=== PATIENT | female | born 1985 | race Caucasian/White ===

== ENCOUNTER 2020-11-16 15:58 | Emergency (ER) | payer OTHER, SELFPAY ==
[2020-11-16 16:19] VITALS: BP 120/70; PULSE 95; RESP 20; TEMP 36.3; O2SAT 100
--- NOTE | 2020-11-16 16:34 | ED.SKABFB ---
HPI - Skin/Abscess/Foreign Bdy General Chief complaint: Skin/Abscess/Foreign Body Stated complaint: burned arm and hand at work. Source: patient Mode of arrival: ambulatory Limitations: no limitations History of Present Illness HPI narrative: patient has a reddened area with a small blister on her right wrist and forearm looks like a 1st degree burn that is tender with some erythema warmth and tenderness after she had a cab [employer] on it penetrated above while at work with some hot cooking oil. Otherwise no other injuries no fever chills no shortness of breath. Patient is up-to-date with her tetanus she received 3 years ago. complaint: other ( 1st degree burn over the right wrist and mid forearm) Onset (ago): hour(s) Tetanus up to date: yes Location: RUE Severity: moderate Related Data Allergies Allergy/AdvReac Type Severity Reaction Status Date / Time ampicillin Allergy Anaphylaxis Verified 11/16/20 16:28 cephalexin [From Keflex] Allergy Anaphylaxis Verified 11/16/20 16:28 Review of Systems Review of Systems: All systems reviewed & are unremarkable except as noted in HPI and below PMFSH Past Medical History Medical History Patient denies medical problems Social History Social History Gender identity (if verbalized by the patient): Female Exam Const: General: no acute distress Orientation/consciousness: patient oriented x3 HENMT: Head: normal to inspection Eyes: Conjunctivae: conjunctivae normal Pupils: Equal, round and reactive pupils present EOM: EOMs intact bilaterally Direct Ophthalmoscopy: no photophobia Neck: Neck: normal visual inspection, no lymphadenopathy and no meningeal signs Chest: Chest palpation & inspection: normal inspection of the chest Resp: Effort & Inspection: normal respiratory effort Auscultation: clear to auscultation bilaterally Cardio: Rate: regular rate Rhythm: regular rhythm GI: GI Palp: Yes Soft to palpation Skin: Other: 1st degree burn to her right wrist and forearm Neuro: General: patient oriented x3, moves all extremities and no meningeal signs Course Course Emergency Course: place Silvadene on to affected forearm and advised to take antibiotics that were sent to her pharmacy. Vital Signs Vital signs: Vital Signs Temperature 36.3 C L 11/16/20 16:19 Pulse Rate 95 11/16/20 16:19 Respiratory Rate 20 11/16/20 16:19 Blood Pressure 120/70 11/16/20 16:19 Pulse Oximetry 100 11/16/20 16:19 Temperature 36.3 C L 11/16/20 16:19 Pulse Rate 95 11/16/20 16:19 Respiratory Rate 20 11/16/20 16:19 Blood Pressure 120/70 11/16/20 16:19 Pulse Oximetry 100 11/16/20 16:19 Critical Care Time Critical Care Time Critical Care Time: No Discharge Plan Discharge Clinical Impression: Burn Patient Disposition: Home, Self-Care Condition: Stable Instructions: Antibiotic Form, Superficial Burn (ED) Additional Instructions: use Silvadene on to affected area twice daily, for approximately 5 days and take antibiotics as prescribed can use Tylenol or Motrin for pain and follow-up with primary care physician if symptoms persist or worsen. Prescriptions: New sulfamethoxazole-trimethoprim [Bactrim DS] 800-160 mg tablet 1 tablet PO Q12H Qty: 20 RF: 0 Follow-up/Referrals: Saul Rahman M.D. [Primary Care Provider] - Stand Alone Forms: Work/School Release IP Time of Disposition: 16:41
[2020-11-16] MEDS: SILVER SULFADIAZINE 1% CR 50 GM JAR (*BKC) 1 APPLIC (16:41)
[2020-11-16 16:42] VITALS: BP 118/72; PULSE 90; RESP 20; TEMP 36.7; O2SAT 100
== END 2020-11-16 16:55 | disposition home or self-care (01) ==
PROVIDERS: Emergency Provider Emergency Medicine; PCP Family Medicine
DX: T22.111A Burn of first degree of right forearm, initial encounter (principal); T23.171A Burn of first degree of right wrist, initial encounter; X10.2XXA Contact with fats and cooking oils, initial encounter
CPT/HCPCS: 16000; 99283; A9270

== ENCOUNTER 2021-01-28 17:25 | Emergency (ER) | payer OTHER, SELFPAY ==
--- NOTE | ~2021-01-28 | XR_ITS ---
XR cervical spine 4-5V 01/28/2021 18:10 Indication: Neck pain Procedure: 3 views cervical spine Comparison: No prior studies for comparison. Findings: Reversal of cervical lordosis. No fracture, subluxation or dislocation. No prevertebral sof t tissue swelling. Lung apices are unremarkable. Odontoid process within normal limits. Mild multilev el uncinate degenerative changes. Impression: 1: No acute abnormality of the cervical spine. Reviewed, dictated and finalized at location A. Impression: 1: No acute abnormality of the cervical spine.
--- NOTE | ~2021-01-28 | XR_ITS ---
[XR ribs LT 2V ] INDICATION: Left rib pain TECHNIQUE: Frontal projection of the upper left ribs, frontal projection of the lower left ribs, obli que projection of all the left ribs, frontal inspiratory chest x-ray for interpretation. FINDINGS: There are no displaced rib fractures identified. There are no soft tissue abnormality see n. The lungs are clear. IMPRESSION: 1:No displaced rib fractures. Reviewed, dictated and finalized at location A.
[2021-01-28 17:30] VITALS: BP 133/91; PULSE 92; RESP 17; TEMP 36.8; O2SAT 100
[2021-01-28] MEDS: KETOROLAC (*BKC) 60 MG/2 ML VIAL IM (18:13)
--- NOTE | 2021-01-28 18:15 | ED.FALL ---
HPI - Fall General Chief Complaint: Fall Stated Complaint: fell off ladder Source: patient Mode of arrival: ambulatory Limitations: no limitations History of Present Illness HPI Narrative: this is a 35-year-old female that while at work fell off a ladder and injured her neck on the left side and left-sided ribs there is some point tenderness in the left mid rib area and the neck tender although has good range of motion with no numbness or tingling in her in her left shoulder or arm or fingers, patient did not lose consciousness no headache no blurry vision no nausea or vomiting. complaint: fall Onset (ago): hour(s) Fall from: other ( off a ladder) Fall witnessed: yes, by bystander Place fall occurred: work Loss of consciousness: none Prolonged down time: no Symptoms prior to fall: none Related Data Home Medications Medication Instructions Recorded Confirmed baclofen 10 mg PO BID 01/28/21 01/28/21 [id number] 1 cap PO Q4H PRN 01/28/21 01/28/21 [Fioricet] propranolol 80 mg PO DAILY 01/28/21 01/28/21 Allergies Allergy/AdvReac Type Severity Reaction Status Date / Time ampicillin Allergy Anaphylaxis Verified 11/16/20 16:28 cephalexin [From Keflex] Allergy Anaphylaxis Verified 11/16/20 16:28 Review of Systems Review of Systems: All systems reviewed & are unremarkable except as noted in HPI and below PMFSH Past Medical History Medical History Patient denies medical problems Social History Social History Gender identity (if verbalized by the patient): Female Exam Const: General: no acute distress and alert Orientation/consciousness: patient oriented x3 Limitations: altered mental status Eyes: Conjunctivae: conjunctivae normal Pupils: Equal, round and reactive pupils present EOM: EOMs intact bilaterally Direct Ophthalmoscopy: no photophobia Neck: Neck: normal visual inspection, no lymphadenopathy and no meningeal signs Chest: Other: Has tender left medial ribs with palpation and with deep inspiration Resp: Effort & Inspection: normal respiratory effort Auscultation: clear to auscultation bilaterally Cardio: Rate: regular rate Rhythm: regular rhythm GI: Auscultation: normal bowel sounds : General: Yes no CVA tenderness Urinary Catheter: Urinary Catheter: patent and draining Back/Spine/Pelvis: Back: no CVA tenderness Skin: General skin exam: normal color Rashes: no rashes Neuro: General: patient oriented x3, moves all extremities, no meningeal signs and no focal motor deficits Extrem: General: normal to inspection and no pedal edema Psych: Appearance: grossly normal Mental Status: mental status grossly normal Affect: normal affect Course Course Emergency Course: reassessment of patient pain level has improved advised her to take her medication as prescribed reviewed her x-ray findings. Vital Signs Vital signs: Vital Signs Temperature 36.8 C 01/28/21 17:30 Pulse Rate 92 01/28/21 17:30 Respiratory Rate 17 01/28/21 17:30 Blood Pressure 133/91 H 01/28/21 17:30 Pulse Oximetry 100 01/28/21 17:30 Temperature 36.8 C 01/28/21 17:30 Pulse Rate 92 01/28/21 17:30 Respiratory Rate 17 01/28/21 17:30 Blood Pressure 133/91 H 01/28/21 17:30 Pulse Oximetry 100 01/28/21 17:30 Critical Care Time Critical Care Time Critical Care Time: No Discharge Plan Discharge Clinical Impression: Cervical strain Qualifiers: Encounter type: initial encounter Qualified Code(s): S16.1XXA - Strain of muscle, fascia and tendon at neck level, initial encounter Patient Disposition: Home, Self-Care Condition: Stable Instructions: Muscle Strain (ED) Additional Instructions: take medicine as prescribed and follow-up with primary care physician if symptoms persist or worsen. Prescriptions: New cyclobenzaprine 5 mg tablet 5
[2021-01-28 18:29] VITALS: RESP 16
== END 2021-01-28 18:30 | disposition home or self-care (01) ==
PROVIDERS: Emergency Provider Emergency Medicine; PCP Family Medicine
DX: S16.1XXA Strain of muscle, fascia and tendon at neck level, initial encounter (principal); W11.XXXA Fall on and from ladder, initial encounter
CPT/HCPCS: 71100; 72050; 96372; 99283; 99284; J1885

== ENCOUNTER 2024-10-23 18:45 | Observation (INO) | payer SELFPAY ==
[2024-10-23] VITALS (30 sets, daily range): BP systolic 107–146; BP diastolic 69–129; PULSE 100–144; RESP 18–38; TEMP 36.6–38.2; O2SAT 86–100; BMI 24.8
--- NOTE | ~2024-10-23 | CT_ITS ---
EXAMINATION: CTA chest PE protocol DATE: 10/25/2024 11:46 INDICATION: Shortness of breath. Tachycardia. TECHNIQUE: Computed tomography angiography (CTA) of the chest was performed with 100 mL Omnipaque-350 intravenous contrast timed to evaluate the pulmonary arteries. Coronal maximum intensity projection 3D-reconstructions were created by the technologist. Automated exposure control and iterative reconst ruction technique were employed. The dose-length product was 263.07 mGy-cm. COMPARISON: None. FINDINGS: The lungs demonstrate mild atelectasis. Calcified right lung nodules and calcified right hi lar and mediastinal lymph nodes are consistent with old granulomatous disease. There are a few nodule s in right upper lobe measuring up to 5 mm, likely benign. No pleural effusion. The heart size is nor mal. No pericardial effusion. There is no pulmonary embolus. Calcifications in the spleen are consist ent with old granulomatous disease. There is mild thoracic spondylosis and severe cervical spondylosi s. IMPRESSION: 1. No pulmonary embolus. Reviewed, dictated and finalized at location A. RFORM MACHINE OPERATOR IMPRESSION: 1. No pulmonary embolus.
--- NOTE | ~2024-10-23 | XR_ITS ---
EXAMINATION: XR chest 2V DATE: 10/23/2024 19:42 INDICATION: Shortness of breath. Cough. TECHNIQUE: Frontal and lateral views of the chest were obtained. COMPARISON: None. FINDINGS: There is no pneumonia, pleural effusion, or pneumothorax. The heart size is normal. IMPRESSION: 1. No acute cardiopulmonary disease. Reviewed, dictated and finalized at location A. TBAND SEPARATOR
--- OUTSIDE RECORDS SUMMARY | 2024-10-23 18:47 | XMS_ITS | Clinical Summary ---
Author Organization [facility] Address [address] [place] [address] Care Team Providers Care Non Licensed Operator Name Role Phone Álvaro Rahman MD Primary Care Provider Silva wilkinson Source Comments [facility],non-owned Affiliates and Associated Physician Practices is amultiple site organization consisting of ambulatory clinics and hospital sitesin [place], [place], [place] and [place]. This disclosure is being madepursuant to the Care Everywhere program and may not contain all information available regarding this patient. Last updated 18.[facility] Allergies Active Allergy Reactions Criticality Noted Date Comments Ampicillin Anaphylaxis High 05/22/2019 Cephalexin Anaphylaxis High 05/22/2019 Medications * Be aware that medications may not be up to date on this document. Alwaysverify current medications with the patient. Medication Sig Dispensed Refills Start Date End Date Status acetaminophen (TYLENOL) 500 MG tablet Take 500 mg by mouth every 6 hours as needed for Fever or Pain Maximum allowable Acetaminophen amount = 4 Grams (4000 mg) / 24 hours. Active diphenoxylate-atro pine (LOMOTIL) 2.5-0.025 MG tablet Take 1 tablet by mouth 3 times daily as needed for Diarrhea 6 tablet 04/25/2020 Active Social History Tobacco Use Types Packs/Day Years Used Date Smoking Tobacco: Every Day Cigarettes Smokeless Tobacco: Never Alcohol Use Standard Drinks/Week Comments Never 0 (1 standard drink = 0.6 oz pur e alcohol) AUDIT-C Answer Date Recorded Frequency of Alcohol Consumption Never 05/22/2019 Average Number of Drinks Not on file 019 Frequency of Binge Drinking Not on file 05/03 Sex and Gender Information Value Date Recorded Sex Assigned at Not on file Gender Identity Not on file Sexual Orientation Not on file Last Filed Vital Signs Vital Sign Reading Time Taken Comments Blood Pressure 123/80 04/25/2020 10:02 PM CDT Pulse 80 04/25/2020 7:00 PM CDT Temperature 37.2 C (99 F) 04/25/2020 7:00 PM CDT Respiratory Rate 20 04/25/2020 7:00 PM CDT Oxygen Saturation 97% 04/25/2020 10: 02 PM CDT Inhaled Oxygen Concentration - - Weight 68.4 kg (150 lb 12.7 oz) 04/25/2020 7:00 PM CDT Height 152.4 cm (5') 04/25/2020 7:00 PM CDT Body Mass Index 29.45 04/25/2020 7:00 PM CDT Plan of Treatment Health Maintenance Due Date Last Done Comments LIPID TESTING 1983 MAMMOGRAM 1983 PAP SMEAR 1983 HIV SCREENING 1998 HEPATITIS C SCREENING 04/18/2001 DTAP/TDAP/TD VACCINES (1 - Tdap) 2002 HEPATITIS B VACCINE (1 of 3 - 19+ 3-dose series) 2002 PNEUMOCOCCAL VACCINE (1 of 2 - PCV) 2002 COVID-19 VACCINE (1 - 2023-2 5 season) 2024 INFLUENZA VACCINE (#1) 2024 DEPRESSION SCREENING 09/01/2024 ZOSTER VACCINE (1 of 2) 2033 HIB VACCINE Aged Out No longer eligi ble based on patient's age to complete this topic HPV VACCINE Aged Out No longer eligi ble based on patient's age to complete this topic MENINGOCOCCAL (Group B) VACCINE Aged Out No longer eligible based on patient's age to complete this topic MENINGOCOCCAL VACCINE Aged Out No clarisse zaid eligible based on patient's age to complete this topic Care Teams Non Licensed Operator Relationship Specialty Start Date End Date Álvaro Rahman MD PCP - General Internal Medicine 05/22/19
--- OUTSIDE RECORDS SUMMARY | 2024-10-23 18:47 | XMS_ITS | Referral Summary ---
Author Organization [facility] Address [address] [place] [address] Care Team Providers Care Clerical Stock Inspector Name Role Phone Álvaro Rahman MD Primary Care Provider Silva wilkinson Source Comments [facility],non-owned Affiliates and Associated Physician Practices is amultiple site organization consisting of ambulatory clinics and hospital sitesin [place], [place], [place] and [place]. This disclosure is being madepursuant to the Care Everywhere program and may not contain all information available regarding this patient. Last updated 18.[facility] Allergies Active Allergy Reactions Criticality Noted Date [...] 04/25/2020 7:00 PM CDT Plan of Treatment Not on file Care Teams Clerical Stock Inspector Relationship Specialty Start Date End Date Álvaro Rahman MD PCP - General Internal Medicine 05/22/19
--- OUTSIDE RECORDS SUMMARY | 2024-10-23 18:47 | XMS_ITS | Patient Health Summary ---
Author Organization [facility] Address [address] [place] [address] Care Team Providers Care Brand Advocate Name Role Phone Álvaro Rahman MD Primary Care Provider Silva wilkinson Note from [facility],non-owned Affiliates and Associated Physician Practices is amultiple site organization consisting of ambulatory clinics and hospital sitesin [place], [place], [place] and [place]. This disclosure is being madepursuant to the Care Everywhere program and may not contain all information available regarding this patient. Last updated 18[facility] [employer] Allergies * Ampicillin(Anaphylaxis) -High Criticality * Cephalexin(Anaphylaxis) -High Criticality Medications * Be aware that medications may not be up to date on this document. Alwaysverify current medications with the patient. * acetaminophen (TYLENOL) 500 MG tablet Take 500 mg by mouth every 6 hours as needed for Fever or Pain Maximum allowable Acetaminophen amount = 4 Grams (4000 mg) / 24 hours. * diphenoxylate-atropine (LOMOTIL) 2.5-0.025 MG tablet(Started 04/25/2020) Take 1 tablet by mouth 3 times daily as needed for Diarrhea Social History Tobacco Use Types Packs/Day Years [...] Mass Index 29.45 04/25/2020 7:00 PM CDT Procedures * CBC W AUTO DIFFERENTIAL(Performed 04/25/2020) * MAGNESIUM BLOOD(Performed 04/25/2020) * COMPREHENSIVE METABOLIC PANEL(Performed 04/25/2020) * COMPREHENSIVE METABOLIC PANEL(Performed 03/05/2020) * CT ABDOMEN PELVIS WO CONTRAST(Performed 03/05/2020) Performed for Flank pain * CBC W AUTO DIFFERENTIAL(Performed 03/05/2020) * URINALYSIS REFLEX MICROSCOPIC REFLEX CULTURE(Performed 03/05/2020) * HCG URINE QUALITATIVE - POCT (IP) BEAKER - ILL(Performed 08/31/2019) * URINALYSIS REFLEX MICROSCOPIC REFLEX CULTURE(Performed 08/31/2019) * COMPREHENSIVE METABOLIC PANEL(Performed 08/31/2019) * CBC W AUTO DIFFERENTIAL(Performed 08/31/2019) * CT ABDOMEN PELVIS WO CONTRAST(Performed 08/31/2019) Performed for Flank pain * ED DENTAL BLOCK(Performed 07/28/2019) Performed for Pain due to dental caries * XR CHEST 2VW(Performed 05/23/2019) Performed for Fever, unspecified fever cause * HCG URINE QUALITATIVE - POCT (IP) BEAKER - ILL(Performed 05/22/2019) * URINALYSIS REFLEX MICROSCOPIC REFLEX CULTURE(Performed 05/22/2019) * LIPASE BLOOD(Performed 05/22/2019) * COMPREHENSIVE METABOLIC PANEL(Performed 05/22/2019) * CBC W AUTO DIFFERENTIAL(Performed 05/22/2019) * CULTURE STREP GROUP A(Performed 05/22/2019) * INFLUENZA A+B ANTIGEN RAPID(Performed 05/22/2019) * STREP A SCREEN DIRECT W RFLX STREP A CULTURE(Performed 05/22/2019) Results * (ABNORMAL) CBC W AUTO DIFFERENTIAL (04/25/2020 8:53 PM CDT) Only the most recent of4 resultswithin the time period is included. WBC 9.7 4.0 - 10.0 x10E9/L 04/25/2020 9:04 PM CDT [facility] RBC 4.78 3.93 - 5.22 x10E12/L 04/25/2020 9:04 PM CDT [facility] Hemoglobin 13.5 11.2 - 15.7 gm/dL 04/25/2020 9:04 PM CDT [facility] Hematocrit 40.3 34.1 - 44.9 % 04/25/2020 9:04 PM CDT [facility] MCV 84.3 78.0 - 100.0 fl 04/25/2020 9:04 PM CDT [facility] MCH 28.2 25.6 - 34.0 pg 04/25/2020 9:04 PM CDT [facility] MCHC 33.5 32.3 - 36.5 gm/dL 04/25/2020 9:04 PM CDT [facility] RDW 13.1 11.6 - 14.4 % 04/25/2020 9:04 PM CDT [facility] MPV 9.4 9.4 - 12.4 fl 04/25/2020 9:04 PM CDT [facility] Platelet Count 305 163 - 369 x10E9/L 04/25/2020 9:04 PM CDT [facility] Neutrophils % 61.2 40.0 - 75.0 % 04/25/2020 9:04 PM CDT [facility] Lymphocytes % 25.1 19.3 - 53.1 % 04/25/2020 9:04 PM CDT [facility] Monocytes % 5.9 4.7 - 12.5 % 04/25/2020 9:04 PM CDT [facility] Eosinophils % 7.0 0.7 - 7.0 % 04/25/2020 9:04 PM CDT [facility] Basophils % 0.4 0.1 - 1.2 % 04/25/2020 9:04 PM CDT [facility] Immature Granulocytes 0.4 0 - 0.5 % 04/25/2020 9:04 PM CDT [facility] Neutrophil Absolute 5.97 1.56 - 6.13 x10E9/L 04/25/2020 9:04 PM CDT [facility] Lymphocytes Absolute 2.44 1.18 - 3.74 x10E9/L 04/25/2020 9:04 PM CDT [facility] Monocytes Absolute 0.57 0.24 - 0.86 x10E9/L 04/25/2020 9:04 PM CDT [facility] Eosinophils Absolute 0.68(H) 0.04 - 0.54 x10E9/L 04/25/2020 9:04 PM CDT [facility] Basophils Absolute 0.04 0.01 - 0.08 x10E9/L 04/25/2020 9:04 PM CDT [facility] Immature Granulocytes Absolute 0.04(H) 0 - 0.03 x10E9/L 04/25/2020 9:04 PM CDT [facility] nRBC Auto 0 <=0 /100 WBC 04/25/2020 9:04 PM CDT [facility] nRBC Absolute 0.00 <=0 x10E9/L 04/25/2020 9:04 PM CDT [facility] Blood BLOOD SPECIMEN / Unknown Venipuncture / Unknown 04/25/2020 8:53 PM CDT 04/25/2020 9:01 PM CDT Eloisa Grande SERVICE PROVIDER-CEMENT CUTTER [facility] - HEMATOL OGY ORDERABLES Performing Organization Address City/State/[facility] Co de Phone Number [facility] [address] * (ABNORMAL) COMPREHENSIVE METABOLIC PANEL (04/25/2020 8:52 PM CDT) Only the most recent of4 resultswithin the time period is included. Glucose 96 70 - 125 mg/dL 04/25/2020 9:24 PM CDT [facility] Sodium 139 136 - 145 mmol/L 04/25/2020 9:24 PM CDT [facility] Potassium 3.9 3.4 - 4.5 mmol/L 04/25/2020 9:24 PM CDT [facility] Chloride 109(H) 98 - 107 mmol/L 04/25/2020 9:24 PM CDT [facility] CO2 21(L) 22 - 29 mmol/L 04/25/2020 9:24 PM CDT [facility] Calcium 8.88 8.4 - 10.2 mg/dL 04/25/2020 9:24 PM CDT [facility] Anion Gap 13 10 - 20 mmol/L 04/25/2020 9:24 PM CDT [facility] BUN 13.1 9.8 - 20.1 mg/dL 04/25/2020 9:24 PM CDT [facility] Creatinine 0.71 0.57 - 1.11 mg/dL 04/25/2020 9:24 PM CDT [facility] eGFR by MDRD >60 >60 mL/min/1.7 3m2 04/25/2020 9:24 PM CDT [facility] eGFR by MDRD >60 >60 mL/min/1.7 3m2 04/25/2020 9:24 PM CDT [facility] Alkaline Phosphatase 57 40 - 150 U/L 04/25/2020 9:24 PM CDT [facility] ALT 29 5 - 55 U/L 04/25/2020 9:24 PM CDT [facility] AST 24 5 - 34 U/L 04/25/2020 9:24 PM CDT [facility] Protein Total 6.8 6.4 - 8.3 gm/dL 04/25/2020 9:24 PM CDT [facility] Albumin 3.6 3.5 - 5.0 gm/dL 04/25/2020 9:24 PM CDT [facility] Globulin Total 3.2 2.6 - 4.0 gm/dL 04/25/2020 9:24 PM CDT [facility] Albumin/Globulin Ratio 1.1 0.9 - 1.6 04/25/2020 9:24 PM CDT [facility] Bilirubin Total 0.1(L) 0.2 - 1.2 mg/dL 04/25/2020 9:24 PM CDT [facility] Blood BLOOD SPECIMEN / Unknown Venipuncture / Unknown 04/25/2020 8:52 PM CDT 04/25/2020 9:01 PM CDT Eloisa Grande APRN-CEMENT CUTTER LAB - SPORTS ACTIVITIES FOUL JUDGE RY ORDERABLES [facility] [address] [place] [address], [facility] * MAGNESIUM BLOOD (04/25/2020 8:52 PM CDT) Magnesium 2.1 1.6 - 2.6 mg/dL 04/25/2020 9:24 PM CDT [facility] Blood BLOOD SPECIMEN / Unknown Venipuncture / Unknown 04/25/2020 8:52 PM CDT 04/25/2020 9:01 PM CDT Eloisa Grande SERVICE PROVIDER-CEMENT CUTTER LAB - SPORTS ACTIVITIES FOUL JUDGE RY ORDERABLES [facility] [address] [place], [place] [address] * CT ABDOMEN PELVIS WO CONTRAST - acute abdomen (03/05/2020 6:06 PM CDT) Only the most recent of2 resultswithin the time period is included. Anatomical Region Laterality Modality Abdomen, Pelvis Computed Tomogra phy 03/05/2020 6:43 PM CDT Narrative 03/05/2020 6:53 PM CDT IMAGING STUDIES: CT ABDOMEN PELVIS WO CONTRAST DATE: 03/05/2020 6:06 PM CLINICAL HISTORY: Unspecified abdominal pain. Left-sided flank pain. Left lower quadrant pain. CONCLUSION: 1.Routine CT of the abdomen and pelvis without contrast. Comparison August 31, 2019. Radiation dose reduction technique was utilized. 2.There are no acute findings. Bilateral punctate nonobstructing renal calculi. No hydronephrosis. No urinary bladder calculi.. Uterus and adnexal regions are age appropriate. Normal-sized appendix without inflammation. Stable probable small appendicoliths. Subtle stable cholelithiasis without inflammation. 3.Mild fatty infiltration of the liver without mass. All other visualized noncontrast visceral structures are within normal limits. No free fluid or free air. 4.No bowel obstruction. Atherosclerotic normal-sized aorta. No pathologic lymphadenopathy. Possible sigmoid diverticuli without diverticulitis. 5.Lung bases with minimal scar. No infiltrate.. Minor degenerative change in lumbar spine. Mild to moderate sclerosis of both sacroiliac joints without erosion. May be due to sacroiliitis. Benign bone islands in the pelvis.. Procedure Note Mino Bradshaw MD - 03/05/2020 IMAGING STUDIES: CT ABDOMEN PELVIS WO CONTRAST DATE: 03/05/2020 6:06 PM CLINICAL HISTORY: Unspecified abdominal pain. Left-sided flank pain. Left lower quadrant pain. CONCLUSION: 1.Routine CT of the abdomen and pelvis without contrast. Comparison August 31, 2019. Radiation dose reduction technique was utilized. 2.There are no acute findings. Bilateral punctate nonobstructing renal calculi. No hydronephrosis. No urinary bladder calculi.. Uterus and adnexal regions are age appropriate. Normal-sized appendix without inflammation. Stable probable small appendicoliths. Subtle stable cholelithiasis without inflammation. 3.Mild fatty infiltration of the liver without mass. All other visualized noncontrast visceral structures are within normal limits. No free fluid or free air. 4.No bowel obstruction. Atherosclerotic normal-sized aorta. No pathologic lymphadenopathy. Possible sigmoid diverticuli without diverticulitis. 5.Lung bases with minimal scar. No infiltrate.. Minor degenerative change in lumbar spine. Mild to moderate sclerosis of both sacroiliac joints without erosion. May be due to sacroiliitis. Benign bone islands in the pelvis.. Ludwin Pratt MD CT ORDERABLES * (ABNORMAL) URINALYSIS REFLEX MICROSCOPIC REFLEX CULTURE (03/05/2020 4:49 PM CDT) Only the most recent of3 resultswithin the time period is included. Color UA Yellow Straw, Yellow 03/05/2020 6:00 PM CDT [facility] Clarity UA Slt Cloudy(A) Clear 03/05/2020 6:00 PM CDT [facility] Glucose UA Negative Negative 03/05/2020 6:00 PM CDT [facility] Bilirubin UA Negative Negative 03/05/2020 6:00 PM CDT [facility] Ketone UA Negative Negative 03/05/2020 6:00 PM CDT [facility] Specific [place] UA 1.018 1.005 - 1.030 03/05/2020 6:00 PM CDT [facility] Blood UA Negative Negative 03/05/2020 6:00 PM CDT [facility] pH UA 6.0 5.0 - 8.0 pH 03/05/2020 6:00 PM CDT [facility] Protein UA Negative Negative 03/05/2020 6:00 PM CDT [facility] Urobilinogen UA Negative Negative mg/dL 03/05/2020 6:00 PM CDT [facility] Nitrite UA Negative Negative 03/05/2020 6:00 PM CDT [facility] Leukocyte UA Negative Negative 03/05/2020 6:00 PM CDT [facility] Urine Microscopy Urine microscopy not indicated 03/05/2020 6:00 PM CDT [facility] Reflex Status Culture not indicated 03/05/2020 6:00 PM CDT [facility] Urine URINE SPECIMEN OBTAINED BY CLEAN CATCH PROCEDURE / Unknown Collection / Unknown 03/05/2020 4:49 PM CDT 03/05/2020 5:47 PM CDT Narrative [facility] - 03/05/2020 6:00 PM CDT Ludwin Pratt MD LAB - URINALYSIS ORD ERABLES [facility] [address] * HCG URINE QUALITATIVE - POCT (IP) BEAKER - [facility] (08/31/2019 1:28 AM ELECTRICAL SOLDERER) Only the most recent of2 resultswithin the time period is included. HCG Qual Urine Negative Negative [facility] Lot # [id number] [facility] Expiration Date 02/28/21 [facility] QC Verified Yes Yes [facility] Urine URINE / Unknown 08/31/2019 1 :28 AM ELECTRICAL SOLDERER Omar Mcdaniel MD LAB - POINT OF CAR E ORDERABLES Performing Organization Address City/[facility] Co de Phone Number [facility] [address] * Dental Block (07/28/2019 6:34 PM ELECTRICAL SOLDERER) Narrative Álvaro Quintanilla MD - 07/28/2019 6:34 PM ELECTRICAL SOLDERER Brianda Kemp APRN-CNP 07/28/2019 7:00 PM Dental Block Date/Time: 07/28/2019 6:59 PM Performed by: Brianda Kemp APRN-CNP Authorized by: Brianda Kemp APRN-CNP Consent: Consent obtained: Verbal and emergent situation Consent given by: Patient Risks discussed: Hematoma, allergic reaction, infection, intravascular injection, pain, nerve damage, swelling and unsuccessful block Alternatives discussed: No treatment, alternative treatment and delayed treatment Indications: Indications: dental pain Location: Block type: Inferior alveolar Laterality: Right Procedure details (see MAR for exact dosages): Needle gauge: 27 G Anesthetic injected: Bupivacaine 0.5% w/o epi Injection procedure: Anatomic landmarks identified, anatomic landmarks palpated, introduced needle, negative aspiration for blood and incremental injection Post-procedure details: Outcome: Anesthesia achieved Patient tolerance of procedure: Tolerated well, no immediate complications Brianda Kemp APRN-CEMENT CUTTER PROCEDURE/MINOR SURGICAL ORDERABLES * XR CHEST 2VW (05/23/2019 12:48 AM CDT) Anatomical Region Laterality Modality Chest Radiographic Manisha ging 05/24/2019 8:34 AM CDT Impressions 05/24/2019 8:35 AM CDT 1.No evidence of acute cardiopulmonary disease. 2.Normal heart size and pulmonary vascularity. No consolidation or pleural effusion. No pneumothorax. Slight thoracolumbar curve. 3.Concur with preliminary report. Narrative 05/24/2019 8:35 AM CDT EXAMINATION: XR CHEST 2VW EXAM DATE/TIME: 05/23/2019 12:49 AM CLINICAL HISTORY: Fever. COMPARISON: No comparison. Procedure Note Eunice Kemp MD - 05/24/2019 EXAMINATION: XR CHEST 2VW EXAM DATE/TIME: 05/23/2019 12:49 AM CLINICAL HISTORY: Fever. COMPARISON: No comparison. IMPRESSION 1.No evidence of acute cardiopulmonary disease. 2.Normal heart size and pulmonary vascularity. No consolidation or pleural effusion. No pneumothorax. Slight thoracolumbar curve. 3.Concur with preliminary report. [facility] R[facility] * LIPASE BLOOD (05/22/2019 11:31 PM CDT) Lipase 25 8 - 78 U/L 05/23/2019 12:09 AM CDT [facility] Blood BLOOD SPECIMEN / Unknown Venipuncture / Unknown 05/22/2019 11:31 PM CDT 05/22/2019 11:41 PM CDT [facility] - CHEMISTRY SAEED TORRES Performing Organization Address [facility] Co de Phone Number [facility] [address] * STREP A SCREEN DIRECT W RFLX STREP A CULTURE (05/22/2019 11:30 PM CDT) Strep A Rapid Negative Negative 05/22/2019 11:54 PM CDT [facility] Microbiology ENTIRE THROAT (SURFACE REGION OF NECK) / Unknown Collection / Unknown 05/22/2019 11:30 PM CDT 05/22/2019 11:41 PM CDT Narrative [facility] - 05/22/2019 11:54 PM CDT Test has reflexed to a Strep A culture. [facility] - MICROBIOLOGY O RDERAGIOVANI Performing Organization Address [facility] de Phone Number [facility] [address] * INFLUENZA A+B ANTIGEN RAPID (05/22/2019 11:30 PM CDT) Influenza A Antigen Negative Negative 05/23/2019 12:02 AM CDT [facility] Influenza B Antigen Negative Negative 05/23/2019 12:02 AM CDT [facility] Microbiology SPECIMEN FROM NASOPHARYNGEAL STRUCTURE / Unknown Collection / Unknown 05/22/2019 11:30 PM CDT 05/22/2019 11:41 PM CDT [facility] - MICROBIOLOGY O DOT Performing Organization Address [facility] Co de Phone Number [facility] [address] * CULTURE STREP GROUP A (05/22/2019 11:30 PM CDT) Culture Negative for beta-hemolytic Streptococcus Group A YANCI 05/25/2019 8:42 AM CDT [facility] Microbiology ENTIRE THROAT (SURFACE REGION OF NECK) / Unknown Collection / Unknown 05/22/2019 11:30 PM CDT 05/22/2019 11:41 PM CDT [facility] - MICROBIOLOGY O RDERABLES Performing Organization Address City/State/[facility] Co de Phone Number [facility] [address] Care Teams Brand Advocate Relationship Specialty Start Date End Date Álvaro Rahman MD PCP - General Internal Medicine 05/22/19
--- NOTE | 2024-10-23 19:12 | ED.GENADULT ---
HPI - General Adult General Chief complaint: Shortness of Breath/Dyspnea Stated complaint: shortness of breath Time Seen by Provider: 10/23/24 19:06 History of Present Illness HPI narrative: 39-year-old female with history of migraines presents with a 24 hour history of cough, fever, chills, chest tightness. She denies any sick contacts. No other past medical history. Nonsmoker. Related Data Home Medications ?Medication ?Instructions ?Recorded ?Confirmed ?Last Taken ?Type No Home Medications 10/23/24 10/23/24 Unknown History Allergies Allergy/AdvReac Type Severity Reaction Status Date / Time ampicillin Allergy Anaphylaxis Verified 10/23/24 18:56 cephalexin (From Keflex) Allergy Anaphylaxis Verified 10/23/24 18:56 [facility] Past Medical History Medical History Patient denies medical problems Social History Social History Gender identity (if verbalized by the patient): Female Exam Narrative: GEN: Awake, alert, Ill-appearing. HEENT: + rhinorrhea noted, mucous membranes moist. No scleral icterus or conjunctival injection. CV: Normal rate, regular rhythm, S1S2 no M/G/R. 2+ distal pulses all extremities. No peripheral edema noted. PULM: Tight lung sounds in the bases, wheezing in the upper coppola GI: Abdomen soft, non -tender to palpation. No rigidity, distention or guarding.? NEURO: Normal speech. No lateralizing or focal deficits noted. Course Vital Signs Vital signs: Vital Signs Temperature 38.2 C H 10/23/24 18:45 Pulse Rate 128 H 10/23/24 18:45 Respiratory Rate 26 H 10/23/24 18:45 Blood Pressure 135/93 H 10/23/24 18:45 Pulse Oximetry 93 10/23/24 18:45 Oxygen Delivery Room Air 10/23/24 18:45 Temperature 36.9 C 10/23/24 21:05 Pulse Rate 120 H 10/23/24 21:42 Respiratory Rate 24 H 10/23/24 21:42 Blood Pressure 124/71 10/23/24 20:45 Pulse Oximetry 97 10/23/24 21:42 Oxygen Delivery Room Air 10/23/24 18:45 Medical Decision Making MDM Narrative Medical decision making narrative: Patient was placed in Room #:? 3 Independent Historian: none External Source Review: past medical records Differential diagnosis includes but not limited to:? various viral infections, asthma exacerbation but the patient does test positive for influenza A so that will be our working diagnosis Medications were Reviewed: home medications Independently Interpreted by me: labs and test results Medications, treatment, ED course: patient received DuoNebs, Solu-Medrol, IV fluid bolus, Tamiflu Social situation impacting patients care: patient lives independently in the community Shared decision making:? discussed with patient that given the severity of her illness I recommend she remain in the hospital for observation for at least 24 hours Accepting physician: Dr. Parker DISCHARGE DIAGNOSIS: influenza a DISPOSITION: admission to [facility] CONDITION AT DISCHARGE:? stable Vital Signs Vital Signs: Vital Signs Temperature 38.2 C H 10/23/24 18:45 Pulse Rate 128 H 10/23/24 18:45 Respiratory Rate 26 H 10/23/24 18:45 Blood Pressure 135/93 H 10/23/24 18:45 Pulse Oximetry 93 10/23/24 18:45 Oxygen Delivery Room Air 10/23/24 18:45 Temperature 36.9 C 10/23/24 21:05 Pulse Rate 120 H 10/23/24 21:42 Respiratory Rate 24 H 10/23/24 21:42 Blood Pressure 124/71 10/23/24 20:45 Pulse Oximetry 97 10/23/24 21:42 Oxygen Delivery Room Air 10/23/24 18:45 Lab Data 10/23/24 19:25 10/23/24 19:25 Labs: Lab Results 10/23/24 Range/Units 19:25 WBC 4.2 L (4.8-10.8) K/mm3 RBC 5.01 (4.20-5.40) M/mm3 Hgb 13.7 (12.0-15.0) g/dL Hct 44.9 (35.0-49.0) % MCV 89.6 (78.0-102.0) fL MCH 27.3 (27.0-31.0) pg MCHC 30.5 L (32-36) g/dL RDW 13.1 (11.6-14.4) % Plt Count 325 (150-420) K/mm3 MPV 9.0 L (9.2-11.8) fl Sodium 140 (136-145) mmol/L Potassium 3.8 (3.5-5.1) mmol/L Chloride 102 (98-108) mmol/L Carbon Dioxide 23 (21-32) mmol/L Anion Gap 15 H (4-12) mmol/L BUN 12 (7-18) mg/dL Creatinine 0.85 (0.55-1.02) mg/dL Estim Creat Clear Calc 57 ml/min Estimated GFR > 60 (59 - ) Glucose 94 (70-99) mg/dL Calculated Osmolality 289 (285-295) mOsm/kg Calcium 9.1 (8.5-10.1) mg/dL Total Bilirubin 0.3 (0.00-1.00) mg/dL AST 39 H (15-37) U/L ALT 63 H (14-59) U/L Alkaline Phosphatase 103 (46-116) U/L Total Protein 8.5 H (6.4-8.2) g/dL Albumin 4.0 (3.4-5.0) g/dL Influenza A (RT-PCR) Positive A (Negative) Influenza B (RT-PCR) Negative (Negative) RSV (RT-PCR) Negative (Negative) SARS-CoV-2 RNA (RT-PCR) Negative (Negative) Discharge Plan Discharge Clinical Impression: Influenza A Patient Disposition: Acute Care Hospital [facility] Condition: Stable Instructions: Influenza (ED) Additional Instructions: your being admitted to [facility] for or ongoing medical management and observation. You will be receiving Tamiflu for treatment of your influenza A. Patient Language: Sri Lankan Prescriptions: No Action No Home Medications Follow-up/Referrals: Saul Rahman M.D. [Primary Care Provider] - Time of Disposition: 22:16
[2024-10-23] MEDS: SODIUM CHLORIDE 0.9% IV 1,000 ML 999 ML IV CONT (19:25)
[2024-10-23] MEDS: IPRATROPIUM 0.5 MG/ALBUTEROL SULFATE 2.5 MG AMPUL.NEB 3 ML NEBULIZE (19:40)
--- OUTSIDE RECORDS SUMMARY | 2024-10-23 19:52 | XMS_ITS ---
Author Organization Unknown Address [address] [place] [address] [phone] Phone Care Team Providers Care Wheel And Axle Inspector Name Role Phone LUIS F LANDERS Attending Unavailable ANTON Herron Primary Unavailable Immunization Immunization Date Status Additional Notes Code Code System DTP 1983 Completed CVX DTP 1983 Completed CVX DTP 1983 Completed CVX DTP 12/30/1986 Completed CVX DTP 04/05/1988 Completed CVX OPV 1983 Completed 02 CVX OPV 1983 Completed 02 CVX OPV 1983 Completed 02 CVX OPV 04/05/1988 Completed 02 CVX MMR 12/30/1986 Completed 03 CVX MMR 04/11/1993 Completed 03 CVX Hep B, adolescent or pediatric 06/07/1999 Completed 08 CVX Hep B, adolescent or pediatric 07/05/1999 Completed 08 CVX Hep B, adolescent or pediatric 12/06/1999 Completed 08 CVX Td (adult), 2 Lf tetanus toxoid, preservative free, adsorbed 12/06/1996 Completed 09 CVX Tdap 06/08/2009 Completed 115 CVX Results CBC W/ DIFF - Collect Date/T aj: 07/29/2023 08:04 [facility] [id number] [address] [place] [address], [phone] LOINC: 72749-3 Test Value Unit Reference Range Code Code System Flag WBC 8.7 10^3uL L=4.8 H=10.8 RBC 4.84 10^6uL L=4.20 H=5.40 HEMOGLOBIN 13.5 g/dL L=12.0 H=16.0 718-7 LOINC HEMATOCRIT 41.6 VOL% L=37.0 H=47.0 4544-3 LOINC MCV 86.0 fL L=81.0 H=99.0 MCH 27.9 pg L=27.0 H=32.0 MCHC 32.5 g/dL L=32.0 H=36.0 PLATELETS 375 10^3uL L=100 H=400 23360-3 LOINC RDW 13.3 % L=11.7 H=15.5 %GRAN 59.9 % L=40.0 H=70.0 98133-9 LOINC %LYMPH 25.5 % L=20.0 H=45.0 736-9 LOINC %MONO 7.3 % L=2.0 H=10.0 42158-1 LOINC %EOS 6.2 % L=0.0 H=6.0 713-8 LOINC H %BASO 0.8 % L=0.0 H=3.0 706-2 LOINC #NEUT 5.2 10^3uL L=1.9 H=7.6 53618-9 LOINC #LYMPH 2.2 10^3uL L=0.9 H=4.9 23004-4 LOINC #MONO 0.6 10^3uL L=0.1 H=0.9 72395-7 LOINC #EOS 0.5 10^3uL L=0.0 H=0.6 712-0 LOINC #BASO 0.07 10^3uL L=0.00 H=0.10 02261-3 LOINC #IM GRANS 0.0 10^3uL L=0.0 H=7.0 35960-8 LOINC %IM GRANS 0.3 % L=0.0 H=5.0 56827-8 LOINC %NRB 0.0 L=0.0 H=0.2 39914-8 LOINC #NRB 0.000 L=0.000 H=0.012 11274-0 LOINC MANUAL DIFF NOT INDICATED RBC MORPH NOT INDICATED COMPREHENSIVE METABOLIC PANE L - Collect Date/Time: 07/29/2023 08:04 [facility] [id number] [address] [place], [place], [phone] LOINC: 16634-6 Test Value Unit Reference Range Code Code System Flag FASTING NO BUN 20 mg/dL L=7 H=20 3094-0 LOINC CREATININE 0.70 mg/dL L=0.52 H=1.04 2160-0 LOINC GLUCOSE 97 mg/dL L=74 H=106 2345-7 LOINC SODIUM 140 mmol/L L=132 H=144 2951-2 LOINC POTASSIUM 4.2 mmol/L L=3.5 H=5.1 2823-3 LOINC CHLORIDE 107 mmol/L L=98 H=107 2075-0 LOINC CO2 27.0 mmol/L L=22.0 H=30.0 2028-9 LOINC ANION GAP 10 L=10 H=20 85682-1 LOINC OSMOLALITY 293 mOs/kG L=280 H=296 46158-8 LOINC BUN/CREAT 28.6 3097-3 LOINC CALCIUM 9.4 mg/dL L=8.3 H=10.5 02421-0 LOINC AST 36 U/L L=15 H=46 1920-8 LOINC ALT 39 U/L L=9 H=72 1742-6 LOINC ALKALINE PHOS 58 U/L L=38 H=126 6768-6 LOINC TOTAL BILI 0.2 mg/dL L=0.2 H=1.3 1975-2 LOINC ALBUMIN 4.4 G/dL L=3.5 H=5.0 1751-7 LOINC TOTAL PROTEIN 7.7 g/L L=6.3 H=8.2 2885-2 LOINC A/G RATIO 1.3 07091-5 LOINC AGE 38 72072-0 LOINC eGFR NON-AFR 99 ml/min eGFR AFR AMER 120 ml/min Social History Type Status Start Date End Date Code Code Syst em Smoking History Current some day smoker [id number] SNOMED CT Sex Female Medications Medication Start Date End Date Route Frequency Dose Code Code System Medication Instructions Home Meds Imitrex 25MG Oral Tablet 10/23/2022 Unknown ORAL NEEDED 25 MILLIGRAMS 356580 RxNorm TAKE 25 MILLIGRAMS ORAL NEEDED traMADol HCl 50MG Oral Tablet 07/30/2023 Unknown BY MOUTH NEEDED EVERY 6 HOURS 1 TABLET 183624 RxNorm TAKE 1 TABLET BY MOUTH NEEDED EVERY 6 HOURS Clindamycin 300MG Oral Capsule 07/30/2023 Unknown BY MOUTH NEEDED EVERY 8 HOURS 1 CAPSULE 320979 RxNorm TAKE 1 CAPSULE BY MOUTH NEEDED EVERY 8 HOURS Hospital Discharge Instructions Should you have any questions prior to discharge, please contact a member of your healthcare team. If you have left the hospital and have any questions, please contact your primary care physician. Reason For Referral No Data Found Allergies and Adverse Reactions Allergy Substance Reaction Severity Start Date Concern Status Code Code System AMPICILLIN anaphylaxis (SNOMED-CT: null) Active 733 RxNorm KEFLEX anaphylaxis (SNOMED-CT: null) Active 674545 RxNorm Plan of Treatment Carpal/Cubital Tunnel Release R 023 OR Carpal/Cubital Tunnel Release 2022 Trigger Finger Release R 07/30/2023 Encounters Encounter Diagnosis Start Date Code Code Sys tem Pre-surgery evaluation 07/29/2023 [id number] SNOME D-CT Personal Care Team Section Performer Name Performer Role Active Date Inactive VERONICA Brown PCP - Primary care physician 2022-0 2-16
--- OUTSIDE RECORDS SUMMARY | 2024-10-23 19:52 | XMS_ITS | Patient Health Summary ---
Author Organization [facility] Address [address] [place] [address] Care Team Providers Care Customer Management Specialist Name Role Phone Álvaro Rahman MD Primary Care Provider Silva wilkinson Note from [facility],non-owned Affiliates and Associated Physician Practices is amultiple site organization consisting of ambulatory clinics and hospital sitesin [place], [place], [place] and [place]. This disclosure is being madepursuant to the Care Everywhere program and may not contain all information available regarding this patient. Last updated 18.[facility] Allergies * Ampicillin(Anaphylaxis) -High Criticality * Cephalexin(Anaphylaxis) [...] 0.00 <=0 x10E9/L 04/25/2020 9:04 PM CDT [facility] Blood BLOOD SPECIMEN / Unknown Venipuncture / Unknown 04/25/2020 8:53 PM CDT 04/25/2020 9:01 PM CDT Eloisa Grande ARTIFICIAL FOLIAGE ARRANGER-SPRINKLER INSPECTOR LAB - HEMATOL OGY ORDERABLES Performing Organization Address City/State/[facility] Co de Phone Number [facility] [address] * (ABNORMAL) COMPREHENSIVE METABOLIC PANEL (04/25/2020 [...] - 34 U/L 04/25/2020 9:24 PM CDT [facility] Protein Total 6.8 6.4 - 8.3 gm/dL 04/25/2020 9:24 PM CDT [facility] Albumin 3.6 3.5 - 5.0 gm/dL 04/25/2020 9:24 PM CDT [facility] Globulin Total 3.2 2.6 - 4.0 gm/dL 04/25/2020 9:24 PM CDT [facility] Albumin/Globulin Ratio 1.1 0.9 - 1.6 04/25/2020 9:24 PM CDT [facility] Bilirubin Total 0.1(L) 0.2 - 1.2 mg/dL 04/25/2020 9:24 PM CDT [facility] Blood BLOOD SPECIMEN / Unknown Venipuncture / Unknown 04/25/2020 8:52 PM CDT 04/25/2020 9:01 PM CDT Eloisa Grande APRN-SPRINKLER INSPECTOR LAB - MICROSTRATEGY REPORTS DEVELOPER RY ORDERABLES [facility] [address] [place] [address], [facility] * MAGNESIUM BLOOD (04/25/2020 8:52 PM CDT) Magnesium 2.1 1.6 - 2.6 mg/dL 04/25/2020 9:24 PM CDT [facility] Blood BLOOD SPECIMEN / Unknown Venipuncture / Unknown 04/25/2020 8:52 PM CDT 04/25/2020 9:01 PM CDT Eloisa Grande ARTIFICIAL FOLIAGE ARRANGER-SPRINKLER INSPECTOR LAB - MICROSTRATEGY REPORTS DEVELOPER RY ORDERABLES [facility] [address] [place], [place] [address] * CT ABDOMEN PELVIS WO CONTRAST - [...] 03/05/2020 6:00 PM CDT [facility] Specific [place] UA 1.018 1.005 - 1.030 03/05/2020 6:00 [...] UA Negative Negative 03/05/2020 6:00 PM CDT [facility] Urine Microscopy Urine microscopy not indicated 03/05/2020 6:00 PM CDT [facility] Reflex Status Culture not indicated 03/05/2020 6:00 PM CDT [facility] Urine URINE SPECIMEN OBTAINED BY CLEAN CATCH PROCEDURE / Unknown Collection / Unknown 03/05/2020 4:49 PM CDT 03/05/2020 5:47 PM CDT Narrative [facility] - 03/05/2020 6:00 PM CDT Ludwin Pratt MD LAB - URINALYSIS ORD ERABLES [facility] [address] * HCG URINE QUALITATIVE - POCT (IP) [facility] - [facility] (08/31/2019 1:28 AM BLEACH RANGE OPERATOR) Only the most recent of2 resultswithin the time period is included. HCG Qual Urine Negative Negative [facility] Lot # [id number] [facility] Expiration Date 02/28/21 [facility] QC Verified Yes Yes [facility] POC T TESTING Urine URINE / Unknown 08/31/2019 1 :28 AM BLEACH RANGE OPERATOR Omar Mcdaniel MD LAB - POINT OF CAR E ORDERABLES Performing Organization Address City/[facility] Co de Phone Number [facility] [address] * Dental Block (07/28/2019 6:34 PM BLEACH RANGE OPERATOR) Narrative Álvaro Quintanilla MD - 07/28/2019 6:34 PM BLEACH RANGE OPERATOR Brianda Kemp APRN-CNP 07/28/2019 7:00 PM Dental [...] Tolerated well, no immediate complications Brianda Kemp APRN-SPRINKLER INSPECTOR PROCEDURE/MINOR SURGICAL ORDERABLES * XR CHEST 2VW [...] - CHEMISTRY SAEED TORRES Performing Organization Address [facility] Co de Phone Number [facility] [address] * STREP A SCREEN DIRECT W RFLX STREP A CULTURE (05/22/2019 11:30 PM CDT) Strep A Rapid Negative Negative 05/22/2019 11:54 PM CDT [facility] Microbiology ENTIRE THROAT (SURFACE REGION OF NECK) / Unknown Collection / Unknown 05/22/2019 11:30 PM CDT 05/22/2019 11:41 PM CDT Narrative [facility] - 05/22/2019 11:54 PM CDT Test has reflexed to a Strep A culture. [place] [facility] - MICROBIOLOGY O RDERAGIOVANI Performing Organization Address [facility] de Phone Number [facility] [address] * INFLUENZA A+B ANTIGEN RAPID (05/22/2019 11:30 PM CDT) Influenza A Antigen Negative Negative 05/23/2019 12:02 AM CDT [facility] Influenza B Antigen Negative Negative 05/23/2019 12:02 AM CDT [facility] Microbiology SPECIMEN FROM NASOPHARYNGEAL STRUCTURE / Unknown Collection / Unknown 05/22/2019 11:30 PM CDT 05/22/2019 11:41 PM CDT [place] [facility] - MICROBIOLOGY O DOT Performing Organization Address [facility] Co de Phone Number [facility] [address] * CULTURE STREP GROUP A (05/22/2019 11:30 PM CDT) Culture Negative for beta-hemolytic Streptococcus Group A YANCI 05/25/2019 8:42 AM CDT [facility] Microbiology ENTIRE THROAT (SURFACE REGION OF NECK) / Unknown Collection / Unknown 05/22/2019 11:30 PM CDT 05/22/2019 11:41 PM CDT [place] [facility] - MICROBIOLOGY O RDERABLES Performing Organization Address City/State/[facility] Co de Phone Number [facility] [address] Care Teams Customer Management Specialist Relationship Specialty Start Date End Date Álvaro Rahman MD PCP - General Internal Medicine 05/22/19
--- OUTSIDE RECORDS SUMMARY | 2024-10-23 19:52 | XMS_ITS | Referral Summary ---
Author Organization [facility] Address [address] [place] [address] Care Team Providers Care Clothing Trades Workers Name Role Phone Álvaro Rahman MD Primary Care Provider Silva wilkinson Source Comments [facility],non-owned Affiliates and Associated Physician Practices is amultiple site organization consisting of ambulatory clinics and hospital sitesin [place], [place], [place] and [place]. This disclosure is being madepursuant to the Care Everywhere program and may not contain all information available regarding this patient. Last updated 18.[facility] Allergies Active Allergy Reactions Criticality Noted Date [...] of Treatment Not on file Care Teams Clothing Trades Workers Relationship Specialty Start Date End Date Álvaro Rahman MD PCP - General Internal Medicine 05/22/19
--- OUTSIDE RECORDS SUMMARY | 2024-10-23 19:52 | XMS_ITS ---
Author Organization Unknown Address [address] [place] [phone] Phone Care Team Providers Care Computer Security Manager Name Role Phone LUIS F LANDERS Attending Unavailable ADAN WOLF CRNA Unavailable ANTON Herron Primary Unavailable Immunization Immunization [...] CVX Tdap 06/08/2009 Completed 115 CVX Results TEST URINE - Colle ct Date/Time: 07/30/2023 06:14 [facility] ID: [id number] [address] [place] [address], [phone] LOINC: Test Value Unit Reference Range Code Code System Flag URINE PREG NEGATIVE Social History Type Status Start Date End Date Code Code Syst em Smoking History Current some day smoker 405519550877223 SNOMED CT Sex Female Vital Signs Vital Sign Value Unit [place] Value [place] Unit Date/Time Recent/Initial? Code Code System Body Mass Index 26.37 kg/m2 07/18/2023 10:43 Initial 98937 -5 LOINC Systolic Blood Pressure 117 mm[Hg] 07/30/2023 06:18 Initial 8480- 6 LOINC Diastolic Blood Pressure 59 mm[Hg] 07/30/2023 06:18 Initial 8462- 4 LOINC Body Surface Area 1.61 m2 07/18/2023 10:43 Initial 3140- 1 LOINC Height 152.400 0 cm 60.00 in 07/18/2023 10:43 Initial 8302- 2 LOINC O2 Saturation 98 % 2022 06:18 Initial 49924 -5 LOINC Pulse 81.0 /min 07/30/2023 06:18 Initial 8867- 4 LOINC Respiration 16 /min 07/30/20 06:18 Initial 9279- 1 LOINC Temperature 36.8 Ilda 98.2 F 07/30/20 06:18 Initial 8310- 5 LOINC Weight 61.23 kg 135.00 lbs 07/18/2023 10:43 Initial 58927 -7 [facility] Medications Medication Start Date End Date Route Frequency Dose Code Code System Medication Instructions Home Meds Imitrex 25MG Oral Tablet 10/23/2022 Unknown ORAL NEEDED 25 MILLIGRAMS 818744 RxNorm TAKE 25 MILLIGRAMS ORAL NEEDED traMADol HCl 50MG Oral Tablet 07/30/2023 Unknown BY MOUTH NEEDED EVERY 6 HOURS 1 TABLET 191092 RxNorm TAKE 1 TABLET BY MOUTH NEEDED EVERY 6 HOURS Clindamycin 300MG Oral Capsule 07/30/2023 Unknown BY MOUTH NEEDED EVERY 8 HOURS 1 CAPSULE 845930 RxNorm TAKE 1 CAPSULE BY MOUTH NEEDED EVERY 8 HOURS Hospital Discharge Instructions Should you have any questions prior to discharge, please contact a member of your healthcare team. If you have left the hospital and have any questions, please contact your primary care physician. Reason For Referral No Data Found Procedures Procedure Name Date Status Code Code Syste m Anesthesia for all procedure s on nerves, muscles, tendons, fascia, and bur 07/30/2023 completed 26308 CPT Tendon sheath incision 07/30/2023 completed 99612 CP T Allergies and Adverse Reactions Allergy Substance Reaction Severity Start Date Concern Status Code Code System AMPICILLIN anaphylaxis (SNOMED-CT: null) Active 733 RxNorm KEFLEX anaphylaxis (SNOMED-CT: null) Active 20310205 RxNorm Plan of Treatment Carpal/Cubital Tunnel Release R 023 OR Carpal/Cubital Tunnel Release 2022 Trigger Finger Release R 07/30/2023 Encounters Encounter Diagnosis Start Date Code Code Sys tem Trigger thumb, right thumb 07/30/2023 S NOMED-CT Personal Care Team Section Performer Name Performer Role Active Date Inactive VERONICA Brown PCP - Primary care physician 2022-0 2-16
--- OUTSIDE RECORDS SUMMARY | 2024-10-23 19:52 | XMS_ITS ---
Author Organization Unknown Address [address] [place] [phone] Phone Care Team Providers Care Sound Engineering Technician Name Role Phone LUIS F LANDERS Attending Unavailable ANTON Herron Primary Unavailable Immunization Immunization Date Status Additional Notes Code Code System DTP 1983 Completed CVX DTP 1983 Completed CVX DTP 1983 Completed 01 CVX DTP 12/30/1986 Completed 01 CVX DTP 04/05/1988 Completed 01 CVX OPV 1983 Completed 02 CVX OPV [...] CVX Tdap 06/08/2009 Completed 115 CVX Results HAND 3V RIGHT - Completed: 1 09/15/2022 13:41 LOINC: EXAM DESCRIPTION: HAND 3V RIGHT REASON FOR STUDY: 1st digit clicking and pain and lrom NKI hx of carpal tunnel surgery of right wrist Duration: 2 months and worsening TECHNIQUE: 4 views right hand. COMPARISON: None. FINDINGS: BONES/JOINTS: There is no acute fracture, malalignment or osseous abnormality. The joint spaces are normal. SOFT TISSUES: Within normal limits. IMPRESSION: No acute osseous abnormality. THIS IS AN ELECTRONICALLY VERIFIED FINAL REPORT 07/17/2023 8:53 AM - Electronically signed by Man Cabral M.D. CH: BATSHEVA Report ID: [id number] Reading Location: [id number] Social History Type Status Start Date End Date Code Code Syst em Smoking History Current some day smoker [id number] SNOMED CT Sex Female Medications Medication Start Date End Date Route Frequency Dose Code Code System Medication Instructions Home Meds Imitrex 25MG Oral Tablet 10/23/2022 Unknown ORAL NEEDED 25 MILLIGRAMS 063530 RxNorm TAKE 25 MILLIGRAMS ORAL NEEDED traMADol HCl 50MG Oral Tablet 10/23/2022 3 BY MOUTH NEEDED EVERY 6 HOURS 1 TABLET 540356 RxNorm TAKE 1 TABLET BY MOUTH NEEDED EVERY 6 HOURS Clindamycin 300MG Oral Capsule 10/23/2022 3 BY MOUTH THREE TIMES A DAY 1 CAPSULE 784674 RxNorm TAKE 1 CAPSULE BY MOUTH THREE TIMES A DAY traMADol HCl 50MG Oral Tablet 07/30/2023 Unknown BY MOUTH NEEDED EVERY 6 HOURS 1 TABLET 412373 RxNorm TAKE 1 TABLET BY MOUTH NEEDED EVERY 6 HOURS Clindamycin 300MG Oral Capsule 07/30/2023 Unknown BY MOUTH NEEDED EVERY 8 HOURS 1 CAPSULE 354781 RxNorm TAKE 1 CAPSULE BY MOUTH NEEDED [...] 733 RxNorm KEFLEX anaphylaxis (SNOMED-CT: null) Active 168723 RxNorm Plan of Treatment Carpal/Cubital Tunnel Release R 023 OR Carpal/Cubital Tunnel Release 2022 Trigger Finger Release R 07/30/2023 Encounters Encounter Diagnosis Start Date Code Code Sys tem Trigger thumb of right hand 07/16/2023 [id number] 05 SNOMED-CT Personal Care Team Section Performer Name Performer Role Active Date Inactive Da te ANTON, VERONICA W PCP - Primary care physician 2-16 Imaging Narrative Notes
--- OUTSIDE RECORDS SUMMARY | 2024-10-23 19:52 | XMS_ITS | Clinical Summary ---
Author Organization [facility] Address [address] [place] [address] Care Team Providers Care Clinical Microbiologist Name Role Phone Álvaro Rahman MD Primary Care Provider Silva wilkinson Source Comments [facility],non-owned Affiliates and Associated Physician Practices is amultiple site organization consisting of ambulatory clinics and hospital sitesin [place], [place], [place] and [place]. This disclosure is being madepursuant to the Care Everywhere program and may not contain all information available regarding this patient. Last updated 18.[facility] Allergies Active Allergy Reactions Criticality Noted Date [...] age to complete this topic Care Teams Clinical Microbiologist Relationship Specialty Start Date End Date Álvaro Rahman MD PCP - General Internal Medicine 05/22/19
[2024-10-23 19:53] LABS: Hematocrit 44.9 % (35.0-49.0); Hemoglobin 13.7 g/dL (12.0-15.0); Mean Corpuscular HGB Conc 30.5 g/dL (32-36); Mean Corpuscular Hemoglobin 27.3 pg (27.0-31.0); Mean Corpuscular Volume 89.6 fL (78.0-102.0); Platelet Count Result 325 K/mm3 (150-420); Red Blood Count 5.01 M/mm3 (4.20-5.40); Red Cell Distribution Width 13.1 % (11.6-14.4); White Blood Count 4.2 K/mm3 (4.8-10.8)
[2024-10-23] MEDS: ACETAMINOPHEN 500 MG TABLET 1000 MG PO (20:03)
[2024-10-23 20:04] LABS: Alanine Aminotransferase 63 U/L (14-59); Alkaline Phosphatase 103 U/L (46-116); Anion Gap 15 mmol/L (4-12); Aspartate Amino Transferase 39 U/L (15-37); Bilirubin,Total 0.3 mg/dL (0.00-1.00); Blood Urea Nitrogen 12 mg/dL (7-18); Calcium 9.1 mg/dL (8.5-10.1); Carbon Dioxide 23 mmol/L (21-32); Chloride 102 mmol/L (98-108); Estimated CRCL calculation 57 ml/min; Estimated Glomerular Filt Rate > 60; Glucose 94 mg/dL (70-99); Osmolality Calculated 289 mOsm/kg (285-295); Potassium 3.8 mmol/L (3.5-5.1); Sodium 140 mmol/L (136-145); Total Protein 8.5 g/dL (6.4-8.2)
[2024-10-23] MEDS: methylPREDNISolone SOD SUCC 125 MG VIAL IV PUSH (20:04)
--- NOTE | 2024-10-23 20:05 | PC.NURSE ---
Lights dimmed, pt resting, VSS, monitor shows ST, pt given Tylenol for fever. Resting w/ call german at side.
[2024-10-23 20:55] LABS: SARS-CoV-2 RNA PCR Negative (Negative)
[2024-10-23 20:57] LABS: Influenza A QL RT-PCR Positive (Negative); Influenza B QL RT-PCR Negative (Negative); RSV RNA, RT-PCR Negative (Negative)
[2024-10-23] MEDS: IPRATROPIUM 0.5 MG/ALBUTEROL SULFATE 2.5 MG AMPUL.NEB 3 ML INHALATION (21:25)
[2024-10-23] MEDS: OSELTAMIVIR PHOSPHATE 75 MG CAPSULE PO (22:14)
--- NOTE | 2024-10-23 22:25 | PC.NURSE ---
Pt still having cough and SOB w/ treatments given. ERP spoke w/ pt and decision to admit for 23 hr obs. Call placed to floor for bed, spoke to VALENTINO Murray. Pt will go to Rm 203.
--- NOTE | 2024-10-23 22:27 | PC.NURSE ---
Room switched to 208 per Terri RN
[2024-10-23] MEDS: BENZONATATE 100 MG CAPSULE 200 MG PO (22:32)
[2024-10-23] MEDS: SODIUM CHLORIDE 0.9% IV 1,000 ML 150 ML IV CONT (22:58)
--- NOTE | 2024-10-23 23:57 | PC.NURSE ---
Patient admitted to room 208, is alert and oriented times 3, vital signs wnl, dry cough noted, ambulates independently, at bedside, oriented to room and call light.
[2024-10-24] VITALS (11 sets, daily range): BP systolic 114–124; BP diastolic 62–76; PULSE 85–125; RESP 14–24; TEMP 36.4–37.1; O2SAT 94–98
[2024-10-24] MEDS: IPRATROPIUM 0.5 MG/ALBUTEROL SULFATE 2.5 MG AMPUL.NEB 3 ML INHALATION ×5 (00:19→23:35)
[2024-10-24] MEDS: ACETAMINOPHEN 500 MG TABLET 1000 MG PO (06:30)
--- NOTE | 2024-10-24 10:05 | P.HP_ITS ---
H&P: HPI History of Present Illness Date/Time: 10/24/24 10:05 Chief Complaint: Shortness of breath/Dyspnea Narrative: This is a 39-year-old female with significant past medical history of migraines, current everyday smoker who presented to the hospital with shortness a breath, cough, fever / chills, chest tightness for the past 24 hours. She denies any fever, chills, nausea, vomiting, diarrhea, abdominal pain, chest pain. She reports shortness a breath at rest, coughing fits, and chest tightness. Workup in the hospital included a chest x-ray which was negative. Initial labs showed a white blood cell count of 4.2, anion gap of 15, AST 39, ALT 63. Respiratory panel was positive for influenza A. Patient was given 1 L of normal saline, 125 mg IV push Solu-Medrol, DuoNeb, and Tamiflu while in the ED. Review of Systems Review of Systems: All systems reviewed & are unremarkable except as noted in HPI and below PMFSH Past Medical History Medical History (Updated 10/24/24 @ 12:17 by Shanice Preciado APRN) Tobacco abuse Migraines Patient denies medical problems Social History Social History Smoking status: Current every day smoker Tobacco type: cigarettes Second hand tobacco smoke exposure: Yes Alcohol intake: never Substance use: never Substance use type: does not use Do You Feel Safe in your Home?: Yes Lack of Transportation: No Lack of Food: Never True Current Housing: I Have Housing Concerned About Future Housing: No Difficulty Paying Gas/Electric Bills: No Difficulty Paying for Meds: No Currently Unemployed: No Education: Associate Degree Difficulty w/ Childcare or Family Care: No Gender identity (if verbalized by the patient): Female Spiritual care concerns: No Meds Home Medications and Allergies Home Medications ?Medication ?Instructions ?Recorded ?Confirmed ?Type No Home Medications 10/23/24 10/23/24 History Allergies Allergy/AdvReac Type Severity Reaction Status Date / Time ampicillin Allergy Anaphylaxis Verified 10/23/24 18:56 cephalexin (From Keflex) Allergy Anaphylaxis Verified 10/23/24 18:56 Vital Signs Vital Signs - 24 hr 10/23/24 18:45 10/23/24 18:45 10/23/24 18:50 Temperature 100.7 F H Pulse Rate 128 H 135 H Respiratory Rate 26 H 26 H Blood Pressure 135/93 H Pulse Oximetry 93 93 93 Oxygen Delivery Room Air Room Air 10/23/24 19:00 10/23/24 19:01 10/23/24 19:10 Temperature Pulse Rate 137 H 133 H 110 H Respiratory Rate 19 21 H 28 H Blood Pressure 139/129 H Pulse Oximetry 92 93 94 Oxygen Delivery 10/23/24 19:15 10/23/24 19:16 10/23/24 19:30 Temperature Pulse Rate 126 H 129 H 125 H Respiratory Rate 23 H 19 20 Blood Pressure 137/84 Pulse Oximetry 92 95 97 Oxygen Delivery 10/23/24 19:30 10/23/24 19:40 10/23/24 19:45 Temperature Pulse Rate 122 H 136 H 130 H Respiratory Rate 18 20 19 Blood Pressure 146/89 H 143/77 H 128/81 Pulse Oximetry 100 96 96 Oxygen Delivery 10/23/24 20:00 10/23/24 20:15 10/23/24 20:16 Temperature Pulse Rate 134 H 134 H 131 H Respiratory Rate 27 H 19 22 H Blood Pressure 135/83 130/78 Pulse Oximetry 94 95 93 Oxygen Delivery 10/23/24 20:30 10/23/24 20:45 10/23/24 21:00 Temperature Pulse Rate 131 H 128 H 125 H Respiratory Rate 26 H 26 H 38 H Blood Pressure 127/80 124/71 122/75 Pulse Oximetry 92 91 91 Oxygen Delivery 10/23/24 21:01 10/23/24 21:05 10/23/24 21:15 Temperature 98.5 F Pulse Rate 125 H 144 H Respiratory Rate 24 H 37 H Blood Pressure 127/112 H Pulse Oximetry 93 86 L Oxygen Delivery 10/23/24 21:16 10/23/24 21:25 10/23/24 21:30 Temperature Pulse Rate 140 H 122 H 122 H Respiratory Rate 29 H 26 H 18 Blood Pressure 119/79 Pulse Oximetry 91 95 97 Oxygen Delivery 10/23/24 21:42 10/23/24 21:45 10/23/24 22:00 Temperature Pulse Rate 120 H 124 H 126 H Respiratory Rate 24 H 31 H 23 H Blood Pressure 130/86 125/89 Pulse Oximetry 97 94 94 Oxygen Delivery 10/23/24 22:15 10/23/24 22:30 10/23/24 22:31 Temperature Pulse Rate 116 H 105 H 112 H Respiratory Rate 18 30 H 19 Blood Pressure 121/77 115/76 Pulse Oximetry 94 93 94 Oxygen Delivery 10/23/24 23:14 10/23/24 23:25 10/24/24 00:00 Temperature 98 F 97.5 F L Pulse Rate 100 110 H 100 Respiratory Rate 20 18 Blood Pressure 107/69 114/65 Pulse Oximetry 94 93 94 Oxygen Delivery Room Air Room Air Room Air 10/24/24 00:42 10/24/24 00:44 10/24/24 04:00 Temperature 98.1 F Pulse Rate 100 104 H 90 Respiratory Rate 18 22 H 18 Blood Pressure 120/62 Pulse Oximetry 94 95 95 Oxygen Delivery Room Air 10/24/24 06:03 10/24/24 06:19 Temperature Pulse Rate 104 H 106 H Respiratory Rate 20 22 H Blood Pressure Pulse Oximetry 95 98 Oxygen Delivery Exam Narrative: General: In no acute distress, well nourished Head: atraumatic, no encephalopathy Eyes: PERRLA, sclera clear ENT: moist mucous membranes, nasal passages clear Neck: supple, no JVD, no adenopathy, trachea midline Cardiac: Normal S1 and S2. RRR, No murmur, gallops or friction rubs, peripheral pulses intact. Respiratory: Lungs clear to auscultation, no adventitious lung sounds, currently on room air, shortness a breath at rest, tight raspy cough Gastrointestinal: soft, non-distended, non-tender, normoactive bowel sounds. : voiding without difficulty. Extremities: moves all extremities well, no edema Skin: clean, dry, intact. No wounds or lesions. Neuro: Alert and oriented x4, cranial nerves intact, no neuro deficits. Psych: normal mood, normal affect, interactive H&P: Results Labs Labs: Short CBC 10/23/24 Range/Units 19:25 WBC 4.2 L (4.8-10.8) K/mm3 Hgb 13.7 (12.0-15.0) g/dL Hct 44.9 (35.0-49.0) % Plt Count 325 (150-420) K/mm3 BMP 10/23/24 19:25 Sodium 140 Potassium 3.8 Chloride 102 Carbon Dioxide 23 BUN 12 Creatinine 0.85 Glucose 94 Calcium 9.1 Liver Function 10/23/24 Range/Units 19:25 Total Bilirubin 0.3 (0.00-1.00) mg/dL AST 39 H (15-37) U/L ALT 63 H (14-59) U/L Alkaline Phosphatase 103 (46-116) U/L Albumin 4.0 (3.4-5.0) g/dL Imaging Chest x-ray: Radiologist's impression: EXAMINATION: XR chest 2V DATE: 10/23/2024 19:42 INDICATION: Shortness of breath. Cough. TECHNIQUE: Frontal and lateral views of the chest were obtained. COMPARISON: None. FINDINGS: There is no pneumonia, pleural effusion, or pneumothorax. The heart size is normal. IMPRESSION: 1. No acute cardiopulmonary disease. Reviewed, dictated and finalized at location A. TUB OPERATOR Assessment and Plan Assessment and plan (1) Influenza A: Code(s): J10.1 - Influenza due to other identified influenza virus with other respiratory manifestations Status: Acute Assessment and Plan: * chest x-ray was negative for any acute cardiopulmonary disease * respiratory panel positive for influenza A * continue DuoNebs * Will start Mucinex * patient received 125 mg IV push Solu-Medrol while in the ED and 1 L normal saline * white blood cell count 4.2 initially, anion gap 15 * continue Tamiflu * continue Tessalon Perles * pep therapy ordered * Robitussin DM with codeine ordered for night use only * no history of asthma or COPD however she does history of smoking for the past 25 years, half pack per day. we will hold off on giving any further steroids at this time (2) Elevated liver enzymes: Code(s): R74.8 - Abnormal levels of other serum enzymes Status: Acute Assessment and Plan: * initial liver enzymes showed an AST of 39, ALT 63 (3) Tobacco abuse: Code(s): Z72.0 - Tobacco use Status: Acute Assessment and Plan: * patient smokes half a pack per day for the past 25 years * will order a nicotine patch Quality VTE Prophylaxis VTE prophylaxis: mechanical ordered Hospitalist MIPS Advance Care Plan I have confirmed that the patient's Advanced Care Plan is present, code status is documented, or surrogate decision maker is listed in patient medical record.: Yes Medication Reconciliation I have utilized all available resources to obtain, update and review the patients current medications (includes all prescriptions, OTC, herbals, cannabis, and nutritional supplements).: Yes
[2024-10-24] MEDS: BENZONATATE 100 MG CAPSULE 200 MG PO ×2 (10:14→18:00)
[2024-10-24] MEDS: OSELTAMIVIR PHOSPHATE 30 MG CAPSULE PO ×2 (10:15→20:40)
[2024-10-24] MEDS: guaiFENesin 12 HR 600 MG TABCR 1200 MG PO ×2 (11:02→20:40)
[2024-10-24 12:57] LABS: Hematocrit 37.7 % (35.0-49.0); Mean Corpuscular HGB Conc 31.8 g/dL (32-36); Mean Corpuscular Hemoglobin 27.2 pg (27.0-31.0); Mean Corpuscular Volume 85.5 fL (78.0-102.0); Mean Platelet Volume 9.3 fl (9.2-11.8); Platelet Count Result 317 K/mm3 (150-420); Red Blood Count 4.41 M/mm3 (4.20-5.40); White Blood Count 3.8 K/mm3 (4.8-10.8)
[2024-10-24 13:49] LABS: Alanine Aminotransferase 56 U/L (14-59); Albumin Level 3.2 g/dL (3.4-5.0); Alkaline Phosphatase 81 U/L (46-116); Anion Gap 13 mmol/L (4-12); Aspartate Amino Transferase 34 U/L (15-37); Bilirubin,Total 0.2 mg/dL (0.00-1.00); Blood Urea Nitrogen 14 mg/dL (7-18); Calcium 8.3 mg/dL (8.5-10.1); Carbon Dioxide 22 mmol/L (21-32); Chloride 108 mmol/L (98-108); Estimated CRCL calculation 68 ml/min; Estimated Glomerular Filt Rate > 60; Glucose 110 mg/dL (70-99); Magnesium 1.8 mg/dL (1.8-2.4); Osmolality Calculated 297 mOsm/kg (285-295); Potassium 3.3 mmol/L (3.5-5.1); Sodium 143 mmol/L (136-145); Total Protein 7.1 g/dL (6.4-8.2)
[2024-10-24] MEDS: ALPRAZolam (*CRX) 0.25 MG TABLET PO (20:05)
[2024-10-25] VITALS: BP 126/84; PULSE 114; RESP 18; TEMP 37.2; O2SAT 96
[2024-10-25 05:16] LABS: Band Neutrophils Percent 0 % (0-6); Lymphocytes Absolute Manual 1.29 K/mm3 (1.1-4.5); Lymphocytes Percent Manual 34 % (18-44); Monocytes Absolute Manual 0.45 K/mm3 (0.1-0.90); Monocytes Percent Manual 12 % (3-9); Neutrophils Absolute Manual 2.54 K/mm3 (1.7-7.2); Neutrophils Percent Manual 67 % (46-73); Total Cells Counted 100
[2024-10-25 05:17] LABS: Platelet Estimate Adequate (Adequate); Schistocytes None Seen
[2024-10-25] MEDS: IPRATROPIUM 0.5 MG/ALBUTEROL SULFATE 2.5 MG AMPUL.NEB 3 ML INHALATION (06:09)
[2024-10-25 06:10] LABS: Basophils Absolute Auto 0.02 K/mm3 (0.00-0.10); Basophils Percent Auto 0.4 % (0.0-1.0); Eosinophils Absolute Auto 0.03 K/mm3 (0.02-0.50); Eosinophils Percent Auto 0.6 % (1.0-6.0); Hematocrit 36.7 % (35.0-49.0); Hemoglobin 11.8 g/dL (12.0-15.0); Immature Granulocyte Absolute 0.01 K/mm3 (0.00-0.00); Immature Granulocyte Percent A 0.2 % (0.0-0.0); Lymphocytes Absolute Auto 0.68 K/mm3 (1.10-4.50); Lymphocytes Percent Auto 14.7 % (18.0-42.0); Mean Corpuscular HGB Conc 32.2 g/dL (32-36); Mean Corpuscular Hemoglobin 27.3 pg (27.0-31.0); Mean Platelet Volume 9.2 fl (9.2-11.8); Monocytes Absolute Auto 0.53 K/mm3 (0.10-0.90); Monocytes Percent Auto 11.5 % (2.0-11.0); Neutrophils Absolute Auto 3.35 K/mm3 (1.70-7.20); Neutrophils Percent Auto 72.6 % (50.0-70.0); Platelet Count Result 291 K/mm3 (150-420); Red Blood Count 4.32 M/mm3 (4.20-5.40); White Blood Count 4.6 K/mm3 (4.8-10.8)
[2024-10-25 06:11] VITALS: PULSE 120; RESP 16; O2SAT 94
[2024-10-25 06:26] LABS: Alanine Aminotransferase 50 U/L (14-59); Alkaline Phosphatase 74 U/L (46-116); Anion Gap 11 mmol/L (4-12); Aspartate Amino Transferase 34 U/L (15-37); Bilirubin,Total 0.1 mg/dL (0.00-1.00); Blood Urea Nitrogen 12 mg/dL (7-18); Calcium 7.7 mg/dL (8.5-10.1); Carbon Dioxide 23 mmol/L (21-32); Chloride 107 mmol/L (98-108); Estimated CRCL calculation 67 ml/min; Estimated Glomerular Filt Rate > 60; Glucose 96 mg/dL (70-99); Osmolality Calculated 291 mOsm/kg (285-295); Potassium 3.4 mmol/L (3.5-5.1); Sodium 141 mmol/L (136-145); Total Protein 6.6 g/dL (6.4-8.2)
[2024-10-25 08:00] VITALS: BP 110/86; PULSE 118; RESP 18; TEMP 37.3; O2SAT 96
[2024-10-25] MEDS: OSELTAMIVIR PHOSPHATE 75 MG CAPSULE PO (09:41)
[2024-10-25] MEDS: BENZONATATE 100 MG CAPSULE 200 MG PO ×2 (09:41→12:16)
[2024-10-25] MEDS: guaiFENesin 12 HR 600 MG TABCR 1200 MG PO (09:41)
--- NOTE | 2024-10-25 10:08 | P.PNIM_ITS ---
Progress Note: A&P Assessment and Plan (1) Influenza A: Code(s): J10.1 - Influenza due to other identified influenza virus with other respiratory manifestations Status: Acute Assessment and Plan: * chest x-ray was negative for any acute cardiopulmonary disease * respiratory panel positive for influenza A * continue DuoNebs * Will start Mucinex * patient received 125 mg IV push Solu-Medrol while in the ED and 1 L normal saline * white blood cell count 4.2 initially, anion gap 15 * continue Tamiflu * continue Tessalon Perles * pep therapy ordered * Robitussin DM with codeine ordered for night use only * no history of asthma or COPD however she does history of smoking for the past 25 years, half pack per day. we will hold off on giving any further steroids at this time 10/25 * Tachycardia today in the 120's * Change Duonebs to Xopenex * Continue Tamiflu * Will obtain a CTA of chest to rule out PE * Will check D-dimer (2) Elevated liver enzymes: Code(s): R74.8 - Abnormal levels of other serum enzymes Status: Acute Assessment and Plan: * initial liver enzymes showed an AST of 39, ALT 63 10/25 * Resolved- AST 34, ALT 50 (3) Tobacco abuse: Code(s): Z72.0 - Tobacco use Status: Acute Assessment and Plan: * patient smokes half a pack per day for the past 25 years * will order a nicotine patch Subjective Date/time seen: 10/25/24 10:08 Interval history: Interval history: This is a 39-year-old female with significant past medical history of migraines, current everyday smoker who presented to the hospital with shortness a breath, cough, fever / chills, chest tightness for the past 24 hours. She denies any fever, chills, nausea, vomiting, diarrhea, abdominal pain, chest pain. She reports shortness a breath at rest, coughing fits, and chest tightness. Workup in the hospital included a chest x-ray which was negative. Initial labs showed a white blood cell count of 4.2, anion gap of 15, AST 39, ALT 63. Respiratory panel was positive for influenza A. Patient was given 1 L of normal saline, 125 mg IV push Solu-Medrol, DuoNeb, and Tamiflu while in the ED. Subjective Review of Systems Review of Systems: All systems reviewed & are unremarkable except as noted in HPI and below Exam Narrative: General: In no acute distress, well nourished Cardiac: Normal S1 and S2. RRR, No murmur, gallops or friction rubs, peripheral pulses intact. Respiratory: Lungs clear to auscultation, no adventitious lung sounds, currently on room air, shortness a breath at rest, tight raspy cough Gastrointestinal: soft, non-distended, non-tender, normoactive bowel sounds. : voiding without difficulty. Neuro: Alert and oriented x4 Objective Data Vital Signs Vital Signs: Vital Signs - 24 hr 10/24/24 16:00 10/24/24 19:34 10/24/24 23:34 Temperature 98.2 F 98.3 F Pulse Rate 88 125 H 114 H Respiratory Rate 14 24 H 20 Blood Pressure 120/70 124/76 Pulse Oximetry 98 96 96 Oxygen Delivery Room Air Room Air 10/24/24 23:50 10/25/24 00:00 10/25/24 06:11 Temperature 98.9 F Pulse Rate 110 H 114 H 120 H Respiratory Rate 18 18 16 Blood Pressure 126/84 Pulse Oximetry 96 96 94 Oxygen Delivery Room Air Intake/Output Intake/Output: Intake & Output 10/22/24 10/23/24 10/24/24 10/25/24 23:59 23:59 23:59 23:59 Intake Total 1000 2340 350 Balance 1000 2340 350 Meds/Results Medications: Active Medications Generic Name Dose Route Start Last Admin Trade Name Freq PRN Reason Stop Dose Admin Acetaminophen 1,000 mg 10/23/24 22:26 10/24/24 06:30 Acetaminophen 500 Mg Tablet PO 1,000 mg Q4H PRN Administration Mild Pain (1-3) or Fever Albuterol/Ipratropium 3 ml 10/24/24 00:30 10/25/24 06:09 Ipratropium 0.5 Mg/Albuterol Sulfate 2.5 Mg Ampul.Neb 3 Ml INHALATION 10/26/24 23:59 3 ml Q6HRT HERIBERTO Administration Benzonatate 200 mg 10/23/24 22:20 10/25/24 09:41 Benzonatate 100 Mg Capsule PO 200 mg TID HERIBERTO Administration Enoxaparin Sodium 40 mg 10/24/24 09:00 10/25/24 09:47 Enoxaparin 40 Mg/0.4 Ml Syringe SUB-Q Not Given DAILY [facility] Guaifenesin 1,200 mg 10/24/24 10:15 10/25/24 09:41 Guaifenesin 12 Hr 600 Mg Tabcr PO 1,200 mg Q12HR HERIBERTO Administration Guaifenesin 10 ml 10/24/24 12:13 Guaifenesin/Codeine 100/10 Mg 5 Ml Syrup PO HS PRN cough Nicotine 1 patch 10/24/24 12:20 10/25/24 09:46 Nicotine (*Pbkc) 14 Mg Patch TRANSDERM Not Given DAILY [facility] Ondansetron HCl 4 mg 10/24/24 10:05 Ondansetron Inj 4 Mg/2 Ml Vial IV PUSH Q6H PRN Nausea And Vomiting Oseltamivir Phosphate 75 mg 10/25/24 09:00 10/25/24 09:41 Oseltamivir Phosphate 75 Mg Capsule PO 10/28/24 09:01 75 mg Q12HR HERIBERTO Administration Radiology Results: ITS Impressions Chest X-Ray 10/23/24 19:44 IMPRESSION: 1. No acute cardiopulmonary disease. Labs Labs: Laboratory Results - last 24 hr 10/24/24 10/25/24 10:45 04:46 WBC 3.8 L 4.6 L RBC 4.41 4.32 Hgb 12.0 11.8 L Hct 37.7 36.7 MCV 85.5 85.0 MCH 27.2 27.3 MCHC 31.8 L 32.2 RDW 13.0 13.0 Plt Count 317 291 MPV 9.3 9.2 Immature Gran % (Auto) Not Reportable 0.2 H Neut % (Auto) Not Reportable 72.6 H Lymph % (Auto) Not Reportable 14.7 L [place] % (Auto) Not Reportable 11.5 H Eos % (Auto) Not Reportable 0.6 L Baso % (Auto) Not Reportable 0.4 Lymph # (Auto) Not Reportable 0.68 L [place] # (Auto) Not Reportable 0.53 Eos # (Auto) Not Reportable 0.03 Baso # (Auto) Not Reportable 0.02 Abs Immat Gran (auto) Not Reportable 0.01 H Absolute Neuts (auto) Not Reportable 3.35 Absolute Nucleated RBC Not Reportable 0.00 Total Counted 100 Neutrophils % (Manual) 67 Band Neutrophils % 0 Lymphocytes % (Manual) 34 Monocytes % (Manual) 12 H Nucleated RBC % Not Reportable 0.0 Abs Neuts (Manual) 2.54 Abs Lymphs (Manual) 1.29 Abs Monocytes (Manual) 0.45 Platelet Estimate Adequate Schistocytes None seen Sodium 143 141 Potassium 3.3 L 3.4 L Chloride 108 107 Carbon Dioxide 22 23 Anion Gap 13 H 11 BUN 14 12 Creatinine 0.71 0.72 Estim Creat Clear Calc 68 67 Estimated GFR > 60 > 60 Glucose 110 H 96 Calculated Osmolality 297 H 291 Calcium 8.3 L 7.7 L Magnesium 1.8 Total Bilirubin 0.2 0.1 AST 34 34 ALT 56 50 Alkaline Phosphatase 81 74 Total Protein 7.1 6.6 Albumin 3.2 L 3.0 L Quality VTE Prophylaxis VTE prophylaxis: mechanical ordered
[2024-10-25 10:23] LABS: D Dimer 0.19 mg/L (0.19-0.50)
[2024-10-25] MEDS: ACETAMINOPHEN 500 MG TABLET 1000 MG PO (12:16)
[2024-10-25 12:58] VITALS: PULSE 102; RESP 20; O2SAT 96
[2024-10-25] MEDS: LEVALBUTEROL NEB 1.25 MG/3 ML INHALATION (13:01)
[2024-10-25 13:07] VITALS: PULSE 104; RESP 20; O2SAT 98
--- NOTE | 2024-10-25 13:22 | P.DS_ITS ---
DS: Admitting Diagnosis Discharge Date 10/25/24 Admitting Diagnosis Influenza A Transaminitis Tobacco abuse DS: Discharge Diagnosis Discharge Diagnosis (1) Influenza A: Code(s): J10.1 - Influenza due to other identified influenza virus with other respiratory manifestations Status: Acute (2) Elevated liver enzymes: Code(s): R74.8 - Abnormal levels of other serum enzymes Status: Acute (3) Tobacco abuse: Code(s): Z72.0 - Tobacco use Status: Acute DS: Summary Hospital Course Reason for hospitalization: Influenza A Transaminitis Tobacco abuse Hospital Course: This is a 39-year-old female with significant past medical history of migraines, current everyday smoker who presented to the hospital with shortness a breath, cough, fever / chills, chest tightness for the past 24 hours. She denies any fever, chills, nausea, vomiting, diarrhea, abdominal pain, chest pain. She reports shortness a breath at rest, coughing fits, and chest tightness. Workup in the hospital included a chest x-ray which was negative. Initial labs showed a white blood cell count of 4.2, anion gap of 15, AST 39, ALT 63. Respiratory panel was positive for influenza A. Patient was given 1 L of normal saline, 125 mg IV push Solu-Medrol, DuoNeb, and Tamiflu while in the ED. Patient denies any new complaints today. She still has some wheezing however she is a smoker. She is feeling better today. She is tachycardic and was sent for a CTA of chest which was negative for PE. D dimer negative. Tachycardia was likely from Duoneb treatments. Labs reviewed and were unremarkable. She is stable for discharge at this time. Patient was prescribed Mucinex, Xopenex inhaler, and Tamiflu. She needs to follow up with her primary care doctor in 1 week. I also talked to her about getting PFTs in the future. She will talk to her primary about this. Final diagnosis: Influenza A, Transaminitis Status at Discharge Cognitive/behavioral status at discharge: Alert and oriented x3 Functional status at discharge: independent ambulation Overall status at discharge: patient is progressing back to baseline Time Spent with Patient Time attestation: Total time spent providing and/or coordinating discharge services: Time spent: Greater than 30 minutes Exam Narrative: General: In no acute distress, well nourished Cardiac: Normal S1 and S2. RRR, No murmur, gallops or friction rubs, peripheral pulses intact. Respiratory: Lungs clear to auscultation, no adventitious lung sounds, currently on room air, shortness a breath at rest, tight raspy cough Gastrointestinal: soft, non-distended, non-tender, normoactive bowel sounds. : voiding without difficulty. Neuro: Alert and oriented x4 DS: Data Data Completed and Pending Completed studies during hospitalization: chest x ray Chest CTA Pending studies at discharge: None Labs on day of discharge: Labs from last 24 hours 10/25/24 10/24/24 04:46 10:45 WBC 4.6 L RBC 4.32 Hgb 11.8 L Hct 36.7 MCV 85.0 MCH 27.3 MCHC 32.2 RDW 13.0 Plt Count 291 MPV 9.2 Immature Gran % (Auto) 0.2 H Neut % (Auto) 72.6 H Lymph % (Auto) 14.7 L [place] % (Auto) 11.5 H Eos % (Auto) 0.6 L Baso % (Auto) 0.4 Lymph # (Auto) 0.68 L [place] # (Auto) 0.53 Eos # (Auto) 0.03 Baso # (Auto) 0.02 Abs Immat Gran (auto) 0.01 H Absolute Neuts (auto) 3.35 Absolute Nucleated RBC 0.00 Total Counted 100 Neutrophils % (Manual) 67 Band Neutrophils % 0 Lymphocytes % (Manual) 34 Monocytes % (Manual) 12 H Nucleated RBC % 0.0 Abs Neuts (Manual) 2.54 Abs Lymphs (Manual) 1.29 Abs Monocytes (Manual) 0.45 Platelet Estimate Adequate Schistocytes None seen D-Dimer 0.19 Sodium 141 143 Potassium 3.4 L 3.3 L Chloride 107 108 Carbon Dioxide 23 22 Anion Gap 11 13 H BUN 12 14 Creatinine 0.72 0.71 Estim Creat Clear Calc 67 68 Estimated GFR > 60 > 60 Glucose 96 110 H Calculated Osmolality 291 297 H Calcium 7.7 L 8.3 L Magnesium 1.8 Total Bilirubin 0.1 0.2 AST 34 34 ALT 50 56 Alkaline Phosphatase 74 81 Total Protein 6.6 7.1 Albumin 3.0 L 3.2 L Procedures/Treatments: None Discharge Plan Discharge Attending physician on discharge: Saran Parker Discharging Clinician: Shanice Preciado Anticipated Discharge Date/Time: 10/25/24 10:18 Patient Disposition: Home, Self-Care Activity: as tolerated Diet: as tolerated and regular Discharge Instructions: * Finish course of Tamiflu * Follow up with primary care doctor in 1 week * You were prescribed a Xopenex inhaler to use for Shortness of breath/wheezing as needed. Use as prescribed. Do not overuse this medication. * continue Tessalon Perles * Your CT was negative for pulmonary embolism Patient Instructions: Antibiotic Form, Benzonatate (By mouth), Levalbuterol (By breathing), Oseltamivir (By mouth), Influenza (DC) Patient Language: Ivorian Stand Alone Forms: General Discharge Information Follow-up/Referrals: Saul Rahman M.D. [Primary Care Provider] - 1 week Discharge Medications: New benzonatate 100 mg Capsule 200 mg PO TID Qty: 30 0RF guaifenesin [Mucus Relief ER] 600 mg Tablet Extended Release 12hr 1,200 mg PO Q12HR Qty: 20 0RF levalbuterol tartrate [Xopenex HFA] 45 mcg/actuation HFA aerosol inhaler 2 inh inhalation Q6H Qty: 15 0RF oseltamivir [Tamiflu] 75 mg Capsule 75 mg PO Q12HR Qty: 7 0RF codeine-guaifenesin 10-100 mg/5 mL liquid 10 ml PO Q6H Qty: 120 0RF Date of admission: 10/23/24 22:15 Primary Care Provider: Saul Rahman Admitting Provider: Saran Parker Attending physician on admission: Shanice Preciado Condition: Improved Quality VTE Prophylaxis VTE prophylaxis: mechanical ordered Hospitalist MIPS Heart Failure (Exclusion) Patient has history of Heart Transplant or Left Ventricular Assistive Device?: No IF YES, STOP HERE Heart Failure (Qualifier) Patient has current or prior documentation of LVEF less than or equal to 40%, or mod/servere depressed LVSF?: No IF NO, STOP HERE
--- NOTE | 2024-10-25 14:15 | PC.NURSE ---
Discharge instructions reviewed with patient and . Patient verbalizes understanding. Patient taken off floor per wheelchair
--- NOTE | 2024-10-26 12:55 | PC.NURSE ---
follow up call made, doing ok, needs her inhaler, [facility] not [facility] it, called [facility] and they do have it in stock, will obtain rx info from [facility] and fill for patient, patient called back and advised of this.
== END 2024-10-25 14:15 | disposition home or self-care (01) ==
LOC: CHSED 22:15 → CHS2ND 22:28
PROVIDERS: Admitting Provider Internal Medicine; Emergency Provider Family Medicine; PCP Family Medicine; Visit Provider Nurse Practitioner Acute Care
DX: J10.1 Influenza due to other identified influenza virus with other respiratory manifestations (principal); F17.210 Nicotine dependence, cigarettes, uncomplicated; R74.01 Elevation of levels of liver transaminase levels; R74.8 Abnormal levels of other serum enzymes; G43.909 Migraine, unspecified, not intractable, without status migrainosus; Z20.822 Contact with and (suspected) exposure to COVID-19; Z88.1 Allergy status to other antibiotic agents
CPT/HCPCS: 36415; 71046; 71275; 80053; 83735; 85025; 85027; 85380; 87637; 94640; 94667; 96361; 96374; 99285; A9270; G0378; J2919; J7030; Q9967